=== PATIENT | male | born 1985 | race Caucasian/White ===

== ENCOUNTER 2017-06-11 15:26 | Emergency (ER) | payer SELFPAY ==
[~2017-06-11] VITALS: Ht 177.8 cm; Wt 95.0 kg
[2017-06-11 15:28] VITALS: BP 139/93; PULSE 104; RESP 18; TEMP 99.1; O2SAT 97
[2017-06-11] MEDS ORDERED: SODIUM CHLOR 0.9% 1000 ML INJ 1,000 ML IV ONE ×2 (15:40→16:15)
[2017-06-11] MEDS ORDERED: KETOROLAC TROMETHAMINE 30 MG/ML (IVP) VIAL IV PUSH ONE (15:45)
[2017-06-11] MEDS ORDERED: SODIUM CHLORIDE 0.9% FLUSH 10 ML FLUSH IVF PRN (15:45)
[2017-06-11] MEDS ORDERED: ONDANSETRON HCL 4 MG/2 ML VIAL IV PUSH ONE ×2 (15:45→16:15)
--- NOTE | 2017-06-11 15:45 | PD ---
HPI Chief Complaint: Flank/Kidney Pain Time Seen by Provider: 15:35 Travel History International Travel<30 days: No Contact w/Intl Traveler<30days: No Traveled to known affect area: No History of Present Illness HPI 31-year-old male presents to the emergency department for evaluation of bilateral low back pain/flank pain that started yesterday morning upon awakening. He reports history of nephrolithiasis and states this feels similar. He states last episode was approximately a year ago. He states that however, he does not have any burning with urination like he has had in the past. He denies any fevers or chills. No chest pain or shortness breath. No abdominal pain. No diarrhea or constipation. He has reported nausea and vomiting. He reports approximately 3 episodes of vomiting in the past 24 hours. Patient reports history cardiac ablation in 2004, no issues since. He states it was done for some sort of arrhythmia that he cannot elaborate on. He states he is not currently on any prescribed medications. Patient states that movement does make the pain worse. Resting will slightly alleviate the pain. No radiation of the pain. No other complaints. PFSH Past Medical History Kidney Stones: Yes Past Surgical History Cardiac Surgery: Yes (ABLATION) Social History Alcohol Use: Yes Tobacco Use: Yes Substance Use: Yes (MARIJUANA) Allergies-Medications (Allergen,Severity, Reaction): Coded Allergies: amoxicillin (Verified Allergy, Severe, EDEMA, 06/11/17) penicillin V (Verified Allergy, Severe, EDEMA, 06/11/17) Reported Meds & Prescriptions Reported Meds & Active Scripts Active No Active Prescriptions or Reported Medications Review of Systems Except as stated in HPI: all other systems reviewed are Neg Physical Exam Narrative GENERAL: Well-nourished, well-developed male patient, ambulatory. Afebrile. SKIN: Focused skin assessment warm/dry. HEAD: Normocephalic. Atraumatic. EYES: No scleral icterus. No injection or drainage. NECK: Supple, trachea midline. No JVD or lymphadenopathy. CARDIOVASCULAR: Regular rate and rhythm without murmurs, gallops, or rubs. RESPIRATORY: Breath sounds equal bilaterally. No accessory muscle use. Lungs sounds are clear to auscultation. GASTROINTESTINAL: Abdomen soft, non-tender, nondistended. MUSCULOSKELETAL: No cyanosis, or edema. BACK: Nontender without obvious deformity. Bilateral CVA tenderness. Data Data Last Documented VS Vital Signs Date Time Temp Pulse Resp B/P (MAP) Pulse Ox O2 Delivery O2 Flow Rate FiO2 06/11/17 15:28 99.1 104 18 139/93 (108) 97 Room Air Orders Orders Complete Blood Count With Diff (06/11/17 15:40) Comprehensive Metabolic Panel (06/11/17 15:40) Urinalysis - C+S If Indicated (06/11/17 15:40) Ct Abd/Pel W/O Iv Contrast (06/11/17 15:40) Ecg Monitoring (06/11/17 15:40) Iv Access Insert/Monitor (06/11/17 15:40) Ketorolac Inj (Toradol Inj) (06/11/17 15:45) Ondansetron Inj (Zofran Inj) (06/11/17 15:45) Sodium Chloride 0.9% Flush (Ns Flush) (06/11/17 15:45) Sodium Chlor 0.9% 1000 Ml Inj (Ns 1000 M (06/11/17 15:40) Ondansetron Inj (Zofran Inj) (06/11/17 16:15) Sodium Chlor 0.9% 1000 Ml Inj (Ns 1000 M (06/11/17 16:15) Labs Laboratory Tests Test 06/11/17 15:40 06/11/17 15:43 Urine Color YELLOW Urine Turbidity CLEAR Urine pH 5.0 Urine Specific [place] 1.022 Urine Protein NEG mg/dL Urine Glucose (UA) NEG mg/dL Urine Ketones NEG mg/dL Urine Occult Blood NEG Urine Nitrite NEG Urine Bilirubin NEG Urine Urobilinogen LESS THAN 2.0 MG/DL Urine Leukocyte Esterase NEG Urine RBC LESS THAN 1 /hpf Urine WBC 1 /hpf Urine Mucus FEW /lpf Urine Sperm RARE Microscopic Urinalysis Comment CULT NOT INDICATED White Blood Count 6.3 TH/MM3 Red Blood Count 5.86 MIL/MM3 Hemoglobin 16.9 GM/DL Hematocrit 48.8 % Mean Corpuscular Volume 83.3 FL Mean Corpuscular Hemoglobin 28.8 PG Mean Corpuscular Hemoglobin Concent 34.6 % Red Cell Distribution Width 12.9 % Platelet Count 200 TH/MM3 Mean Platelet Volume 7.6 FL Neutrophils (%) (Auto) 47.5 % Lymphocytes (%) (Auto) 42.1 % Monocytes (%) (Auto) 6.4 % Eosinophils (%) (Auto) 3.6 % Basophils (%) (Auto) 0.4 % Neutrophils # (Auto) 3.0 TH/MM3 Lymphocytes # (Auto) 2.7 TH/MM3 Monocytes # (Auto) 0.4 TH/MM3 Eosinophils # (Auto) 0.2 TH/MM3 Basophils # (Auto) 0.0 TH/MM3 CBC Comment DIFF FINAL Differential Comment Blood Urea Nitrogen 14 MG/DL Creatinine 0.88 MG/DL Random Glucose 89 MG/DL Total Protein 7.5 GM/DL Albumin 4.0 GM/DL Calcium Level 9.3 MG/DL Alkaline Phosphatase 52 U/L Aspartate Amino Transf (AST/SGOT) 26 U/L Alanine Aminotransferase (ALT/SGPT) 38 U/L Total Bilirubin 0.5 MG/DL Sodium Level 139 MEQ/L Potassium Level 4.2 MEQ/L Chloride Level 108 MEQ/L Carbon Dioxide Level 23.2 MEQ/L Anion Gap 8 MEQ/L Estimat Glomerular Filtration Rate 102 ML/MIN MDM Medical Decision Making Medical Screen Exam Complete: Yes Emergency Medical Condition: Yes Medical Record Reviewed: Yes Interpretation(s) CT abdomen/pelvis - CONCLUSION: Normal examination. Differential Diagnosis Nephrolithiasis versus UTI versus pyelonephritis versus muscle strain Narrative Course 31-year-old male presents to the emergency department for evaluation of bilateral flank pain, worse on the right, that started yesterday morning, consistent with history of nephrolithiasis. CBC, CMP, UA are ordered and pending. CT abdomen/pelvis without IV contrast is ordered and pending. Patient is given normal saline 1 L IV bolus, Toradol 30 mg IV, Zofran 4 mg IV. CBC is unremarkable. CMP is unremarkable. UA shows no acute abnormality. CT abdomen/pelvis is normal. Imaging and laboratory results are reassuring. Patient will be discharged prescription for an anti-inflammatory and muscle relaxant. Patient is instructed to follow up with his primary care physician. He is to return here for any acute worsening of symptoms. He verbalizes agreement and understanding. The patient was discharged in stable condition with instructions, including return instructions and follow up instructions. Diagnosis Primary Impression: Low back pain Qualified Codes: M54.5 - Low back pain Referrals: Primary Care Physician call for appointment Patient Instructions: Acute Low Back Pain (ED), General Instructions Additional Instructions: Take diclofenac as directed as needed with food for pain. Take Robaxin as directed as needed. Follow-up with your primary care physician. Return to the emergency department for any acute worsening of symptoms. Med/Other Pt SpecificInfo: Prescription(s) given Scripts Methocarbamol (Robaxin) 750 Mg Tab 750 MG PO TID Y for MUSCLE SPASM, #21 TAB 0 Refills Prov: Glenys Hope 06/11/17 Diclofenac Potassium (Diclofenac Potassium) 50 Mg Tab 50 MG PO TID Y for PAIN SCALE 1 TO 10, #21 TAB 0 Refills Prov: Glenys Hope 06/11/17 Disposition: 01 DISCHARGE HOME Condition: Stable Glenys Hope Jun 11, 2017 15:45
[2017-06-11 16:10] LABS: BASOPHIL % 0.4 % (0.0-2.0); EOSINOPHIL # 0.2 TH/MM3 (0-0.4); EOSINOPHIL % 3.6 % (0.0-4.0); HEMATOCRIT 48.8 % (39.0-51.0); HEMO FLAGS DIFF FINAL; LYMPH % 42.1 % (9.0-44.0); LYMPHOCYTE # 2.7 TH/MM3 (1.0-4.8); MEAN CELL VOLUME 83.3 FL (80.0-100.0); MEAN CORPUSCULAR HEMOGLOBIN 28.8 PG (27.0-34.0); MEAN CORPUSCULAR HGB CONC 34.6 % (32.0-36.0); MONO % 6.4 % (0.0-8.0); NEUT % 47.5 % (16.0-70.0); PLATELET COUNT 200 TH/MM3 (150-450); RED BLOOD COUNT 5.86 MIL/MM3 (4.50-5.90); RED CELL DISTRIBUTION WIDTH 12.9 % (11.6-17.2); WHITE BLOOD COUNT 6.3 TH/MM3 (4.0-11.0)
--- NOTE | 2017-06-11 16:14 | RADRPT ---
EXAM DATE/TIME: 06/11/2017 15:51 [facility] COMPARISON: No previous studies available for comparison. INDICATIONS : Bilateral flank pain. ORAL CONTRAST: No oral contrast ingested. RADIATION DOSE: 17.75 CTDIvol (mGy) MEDICAL HISTORY : Renal calculi. SURGICAL HISTORY : None. ENCOUNTER: Initial ACUITY: 2 days PAIN SCALE: 5/10 LOCATION: Bilateral flank TECHNIQUE: Volumetric scanning of the abdomen and pelvis was performed. Using automated exposure control and ad justment of the mA and/or kV according to patient size, radiation dose was kept as low as reasonably achievable to obtain optimal diagnostic quality images. DICOM format image data is available electro nically for review and comparison. FINDINGS: LOWER LUNGS: The visualized lower lungs are clear. LIVER: Homogeneous density without lesion. There is no dilation of the biliary tree. No calcified gallston es. SPLEEN: Normal size without lesion. PANCREAS: Within normal limits. KIDNEYS: Normal in size and shape. There is no mass, stone, or hydronephrosis. ADRENAL GLANDS: Within normal limits. VASCULAR: There is no aortic aneurysm. BOWEL/MESENTERY: The stomach, small bowel, and colon demonstrate no acute abnormality. There is no free intraperitone al air or fluid. ABDOMINAL WALL: Within normal limits. RETROPERITONEUM: There is no lymphadenopathy. BLADDER: No wall thickening or mass. REPRODUCTIVE: Within normal limits. INGUINAL: There is no lymphadenopathy or hernia. MUSCULOSKELETAL: Within normal limits for patient age. CONCLUSION: Normal examination. Srinivas Zacarias Jr., MD on June 11, 2017 at 16:11 Board Certified Radiologist. This report was verified electronically.
[2017-06-11 16:19] LABS: BLOOD, URINE NEG (NEG); COMMENT (UR) CULT NOT INDICATED; CULTURE IF INDICATED CULT NOT INDICATED; GLUCOSE,URINE NEG (NEG); KETONE, URINE NEG (NEG); MUCUS URINE FEW /lpf (OCC); NITRITE,URINE NEG (NEG); URINE COLOR YELLOW (YELLW/STRAW)
--- NOTE | 2017-06-11 16:24 | PD ---
Physical Exam Date Seen by Provider: Jun 11, 2017 Narrative This patient presents with a chief complaint of low back pain. The pain is bilateral but worse on the right than the left. Data Data Last Documented VS Vital Signs Date Time Temp Pulse Resp B/P (MAP) Pulse Ox O2 Delivery O2 Flow Rate FiO2 06/11/17 15:28 99.1 104 18 139/93 (108) 97 Room Air Orders Orders Complete Blood Count With Diff (06/11/17 15:40) Comprehensive Metabolic Panel (06/11/17 15:40) Urinalysis - C+S If Indicated (06/11/17 15:40) Ct Abd/Pel W/O Iv Contrast (06/11/17 15:40) Ecg Monitoring (06/11/17 15:40) Iv Access Insert/Monitor (06/11/17 15:40) Ketorolac Inj (Toradol Inj) (06/11/17 15:45) Ondansetron Inj (Zofran Inj) (06/11/17 15:45) Sodium Chloride 0.9% Flush (Ns Flush) (06/11/17 15:45) Sodium Chlor 0.9% 1000 Ml Inj (Ns 1000 M (06/11/17 15:40) Ondansetron Inj (Zofran Inj) (06/11/17 16:15) Sodium Chlor 0.9% 1000 Ml Inj (Ns 1000 M (06/11/17 16:15) Labs Laboratory Tests Test 06/11/17 15:40 06/11/17 15:43 Urine Color YELLOW Urine Turbidity CLEAR Urine pH 5.0 Urine Specific [place] 1.022 Urine Protein NEG mg/dL Urine Glucose (UA) NEG mg/dL Urine Ketones NEG mg/dL Urine Occult Blood NEG Urine Nitrite NEG Urine Bilirubin NEG Urine Urobilinogen LESS THAN 2.0 MG/DL Urine Leukocyte Esterase NEG Urine RBC LESS THAN 1 /hpf Urine WBC 1 /hpf Urine Mucus FEW /lpf Urine Sperm RARE Microscopic Urinalysis Comment CULT NOT INDICATED White Blood Count 6.3 TH/MM3 Red Blood Count 5.86 MIL/MM3 Hemoglobin 16.9 GM/DL Hematocrit 48.8 % Mean Corpuscular Volume 83.3 FL Mean Corpuscular Hemoglobin 28.8 PG Mean Corpuscular Hemoglobin Concent 34.6 % Red Cell Distribution Width 12.9 % Platelet Count 200 TH/MM3 Mean Platelet Volume 7.6 FL Neutrophils (%) (Auto) 47.5 % Lymphocytes (%) (Auto) 42.1 % Monocytes (%) (Auto) 6.4 % Eosinophils (%) (Auto) 3.6 % Basophils (%) (Auto) 0.4 % Neutrophils # (Auto) 3.0 TH/MM3 Lymphocytes # (Auto) 2.7 TH/MM3 Monocytes # (Auto) 0.4 TH/MM3 Eosinophils # (Auto) 0.2 TH/MM3 Basophils # (Auto) 0.0 TH/MM3 CBC Comment DIFF FINAL Differential Comment MDM Supervised Visit with GHASSAN: Yes Narrative Course I, Dr. Anderson, have reviewed the advance practice practitioner's documentation and am in agreement, met with the patient face to face, made the diagnosis, and the medical decision making was done by me. *My assessment and Findings: This patient is sitting in a chair leaning over the bed. He has diffuse lower back tenderness. Please see Glenys Hope NP's note for laboratory and radiology results, final diagnosis and disposition Scripts No Active Prescriptions or Reported Meds Kera Anderson MD Jun 11, 2017 16:24
[2017-06-11 16:26] LABS: ALKALINE PHOSPHATASE 52 U/L (45-117); ALT (GPT) 38 U/L (12-78); TOTAL BILIRUBIN ADULT 0.5 MG/DL (0.2-1.0)
[2017-06-11 16:28] LABS: ANION GAP 8 MEQ/L (5-15); AST (GOT) 26 U/L (15-37); BICARBONATE 23.2 MEQ/L (21.0-32.0); BLOOD UREA NITROGEN 14 MG/DL (7-18); CHLORIDE 108 MEQ/L (98-107); GLOMERULAR FILTRATION RATE 102 ML/MIN (>89); POTASSIUM 4.2 MEQ/L (3.5-5.1); SODIUM (NA) 139 MEQ/L (136-145)
[2017-06-11] MEDS ORDERED: ROBA750T PO (16:54)
[2017-06-11] MEDS ORDERED: DICL50TA PO (16:54)
== END 2017-06-11 17:01 | disposition home or self-care (01) ==
LOC: NEPD 15:26
DX: M54.5 Low back pain (principal); R10.9 Unspecified abdominal pain; R11.2 Nausea with vomiting, unspecified; Z88.0 Allergy status to penicillin; Z72.0 Tobacco use; Z87.442 Personal history of urinary calculi
CPT/HCPCS: 74176; 80053; 81001; 85025; 96361; 96374; 96375; 99285; J1885; J2405; J7030